=== PATIENT | female | born 1990 | race Caucasian/White ===

== ENCOUNTER 2024-12-18 11:24 | Outpatient (CLI) | payer MEDICAID, SELFPAY ==
[2024-12-18 14:16] LABS: Trichomonas No Trichomonas Seen (None Seen); Yeast No Yeast Seen (None Seen)
[2024-12-18 14:17] LABS: Clue Cells No Clue Cells Seen (None Seen)
[2024-12-18 15:25] LABS: Chlamydia DNA Amplified* NOT DETECTED (No Detected); GC DNA Amplified* NOT DETECTED (No Detected)
== END 2024-12-18 11:25 | disposition home or self-care (01) ==
PROVIDERS: PCP Family Medicine; Visit Provider Family Medicine
DX: Z20.2 Contact with and (suspected) exposure to infections with a predominantly sexual mode of transmission (principal); Z11.3 Encounter for screening for infections with a predominantly sexual mode of transmission; Z11.4 Encounter for screening for human immunodeficiency virus [HIV]
CPT/HCPCS: 86592; 86694; 86703; 87210; 87491; 87591

== ENCOUNTER 2025-07-09 10:53 | Outpatient (CLI) | payer MEDICAID, SELFPAY ==
[2025-07-09 16:25] LABS: Chlamydia DNA Amplified* NOT DETECTED (No Detected); GC DNA Amplified* NOT DETECTED (No Detected)
[2025-07-09 23:35] LABS: Trichomonas No Trichomonas Seen (None Seen)
[2025-07-12 00:04] LABS: HPV Source Cervix
[2025-07-12 15:33] LABS: HPV Genotype 16 by TMA Not Detected; HPV Genotype 18/45 by TMA Not Detected
[2025-07-17 13:19] LABS: Pap Test Digital Imaging Done; Pap Test Reviewed by Pathologi Done
== END 2025-07-09 10:54 | disposition home or self-care (01) ==
PROVIDERS: PCP Family Medicine; Visit Provider Family Medicine
DX: Z72.51 High risk heterosexual behavior (principal); Z12.4 Encounter for screening for malignant neoplasm of cervix
CPT/HCPCS: 86703; 86780; 87210; 87491; 87591; 87624; 87625; 88141; 88142; 88175